=== PATIENT | male | born 1945 | race Caucasian/White ===

== ENCOUNTER → 2018-03-03 | Outpatient (CLI) | payer MEDICARE, BC, OTHER ==
[~2018-03-03] MED LIST: ASPIRIN 81M81 MG/TA2 PO; ASPIRIN E.C. 8181 MG PO; ASPIRIN E.C.325 MG PO; COREG 3.123.125 MG/T PO; COREG12.5 MG PO; LANTUS SOLOS100 U/ML SC; LANTUS100 U/ML SC; LISINOPRIL2.5 MG PO; LISINOPRIL20 MG PO; NIASPAN 500MG500 MG PO; OMEGA 31000 MG PO; OMEGA-3 1000 MG1 CAP PO; SIMCOR 500 MG-21 TER PO; SIMVASTATIN20 MG PO; TRICOR145 MG PO; TRICOR48 MG PO; VITAMIN D1000 IU PO; ZESTRIL 20MG TA20 MG PO; high blood pressure
== END ==
LOC: COL.RAD 08:08
DX: M50.323 Other cervical disc degeneration at C6-C7 level (principal); M48.02 Spinal stenosis, cervical region; M43.22 Fusion of spine, cervical region; M62.50 Muscle wasting and atrophy, not elsewhere classified, unspecified site; R25.3 Fasciculation; Z86.73 Personal history of transient ischemic attack (TIA), and cerebral infarction without residual deficits
CPT/HCPCS: A9585

== ENCOUNTER → 2018-04-05 | Outpatient (CLI) | payer MEDICARE, BC, OTHER | LOC: COL.RAD 07:16 | DX: M51.34 Other intervertebral disc degeneration, thoracic region (principal); M47.816 Spondylosis without myelopathy or radiculopathy, lumbar region; M48.061 Spinal stenosis, lumbar region without neurogenic claudication; M41.86 Other forms of scoliosis, lumbar region ==